=== PATIENT | male | born 1955 | race Caucasian/White ===

== ENCOUNTER → 2016-05-12 | Outpatient (CLI) | payer MEDICAID ==
[~2016-05-12] MED LIST: CALCIUM + D 6001 TA1 PO; DEPAKOTE SPRIN125 MG PO; MAG-OXIDE400 MG PO; PANTOPRAZOLE SO20 MG PO; PERCOCET5/325 PO; ZEGERID 20 MG C1 CAP PO; ZINC GLUCONATE100 MG PO
--- NOTE | ~2016-05-12 | EKG ---
PATIENT: NICHOLE AGUILA UNIT #: [id number] Ventricular Rate: 67 BPM Atrial Rate: 67 BPM P-R Interval: 182 ms QRS Duration: 98 ms Q-T Interval: 374 ms QTC Calculation(Bezet): 395 ms P Fromberg: 31 degrees Calculated R Fromberg: 15 degrees Calculated T Fromberg: 16 degrees Diagnosis Line: Normal sinus rhythm Diagnosis Line: Normal ECG Diagnosis Line: When compared with ECG of 26-AUG-2015 08:42, Diagnosis Line: No significant change was found Diagnosis Line: Confirmed by RUEL GRAVES MD ([id number]) on 05/14/2016 Diagnosis Line: 9:30:19 AM INTERPRETING MD: ELY PATEL
[2016-05-12 15:33] LABS: ALBUMIN SERUM 4.2 g/dL (3.5-5.0); ALKALINE PHOSPHATASE 50 U/L (32-92); ALT (SGPT) 118 U/L (10-40); AST (SGOT) 124 U/L (10-42); BILIRUBIN,TOTAL 1.4 mg/dL (0.2-2.0); BLOOD UREA NITROGEN 16 mg/dL (9-23); BUN/CREATININE RATIO 22.85; CALCIUM SERUM 9.3 mg/dL (8.4-10.2); CARBON DIOXIDE 27 mmol/L (22-31); CHLORIDE 100 mmol/L (100-111); CREATININE SERUM 0.7 mg/dL (0.6-1.4); GLOM FILT RATE Estimated ABOVE60 mL/min (>60); GLUCOSE FASTING 99 mg/dL (70-110); POTASSIUM 4.1 mmol/L (3.5-5.1); PROTEIN TOTAL SERUM 8.5 g/dL (6.0-8.3); SODIUM 136 mmol/L (135-145)
== END | disposition home or self-care (01) ==
LOC: CAMB 12:14
PROVIDERS: Orthopaedic Surgery
DX: Z01.818 Encounter for other preprocedural examination (principal); T84.84XA Pain due to internal orthopedic prosthetic devices, implants and grafts, initial encounter; Z96.661 Presence of right artificial ankle joint
CPT/HCPCS: 36415; 80053; 93005

== ENCOUNTER → 2016-05-18 | Day surgery (SDC) | payer MEDICAID ==
--- NOTE | ~2016-05-18 | OR ---
Unit #: [id number] #: [id number] Patient: NICHOLE AGUILA III [id number] [address] [place], [place] [address] [id number] O MR#: [id number] NAME: NICHOLE AGUILA III ROOM: Date of Procedure: 05/18/2016 Admission Date: 05/18/2016 Surgeon: Aleida Patel M.D. : 1955 Attending Physician: Aleida Patel M.D. Primary Care Physician: Mita Zurita M.D. OPERATIVE REPORT PREOPERATIVE DIAGNOSES 1. Left posterior ankle fracture with ankle equinus. 2. Left lateral ankle impingement. POSTOPERATIVE DIAGNOSES 1. Left posterior ankle fracture with ankle equinus. 2. Left lateral ankle impingement. PROCEDURES PERFORMED 1. Open left Achilles tendon lengthening with posterior ankle capsular release (33270). 2. Left posterolateral ankle joint debridement through ankle arthrotomy (93034). ASSISTANTS Tarun and Jenniffer. ANESTHESIA Popliteal saphenous block and general. INDICATIONS FOR SURGERY The patient is a 60-year-old male with 8 months status post left total ankle arthroplasty with ongoing pain and stiffness. He has failed to respond to conservative care. A CT scan is not document evidence of loosening. There is no evidence of infection. The patient likes ankle dorsiflexion past 0 degrees and has pain in the lateral ankle. Radiographs demonstrate some overgrowth of the posterior bone in the posterior ankle capsule as well as impingement of the talar component against the fibula. The patient is therefore to undergo open Achilles release, posterior ankle capsular release, and debridement of the chief deputy-lateral ankle joint to address the lateral talofibular impingement. DESCRIPTION OF PROCEDURE The patient underwent popliteal saphenous block. He was taken to the operating room and placed in the supine position. General endotracheal anesthesia was induced. The left ankle was identified as the correct operative extremity during the time-out procedure. Pneumatic tourniquet was applied to the left thigh. The patient was then rolled to a prone position. All bony prominences were well padded. The IV antibiotic protocol was followed. The left leg was then prepped and draped in the usual sterile fashion. Unit #: [id number] #: [id number] Patient: NICHOLE AGUILA III An 8 cm posterolateral longitudinal incision was made over the Achilles tendon. Subcutaneous tissue was divided. The Achilles paratenon was carefully dissected off the posterior aspect of the Achilles. The Achilles tendon was then lengthened in a coronal fashion using the Z technique. The posterior muscle fascia was then released over the flexor hallucis longus muscle and this muscle were retracted medially. The posterior ankle was then addressed and all scar was sharply excised until the posterior aspect of the artificial ankle joint could easily be seen. The posterolateral ankle joint was then visualized. The power osteotome was used to remove 3 mm of bone from the fibula. This bone was removed with the rongeur. The wound was then copiously irrigated. The posterolateral ankle joint easily accepted the tips of the rongeur indicating there was complete release. The wound was copiously irrigated. The Achilles tendon was then lengthened 1 cm and repaired with a running locking 2-0 FiberWire stitch. The Achilles paratenon was then closed with 3-0 Vicryl. Subcutaneous tissue was closed with 3-0 Vicryl. Skin was closed with 3-0 nylon horizontal mattress sutures. Xeroform gauze dressing, sponges, Webril, and a posterior fiberglass splint were applied. The patient was then transported to the recovery room in stable condition. ESTIMATED BLOOD LOSS Minimal. COMPLICATIONS None. SPECIMENS None. TOURNIQUET TIME 40 minutes. Dictated byTabitha Gracia/boby TD: 05/19/2016 01:06 JOB #: [id number] OPERATIVE REPORT Page 1 of 1 X Brown Patel MD X PROCEDURE OPERATIVE NOTE
--- NOTE | ~2016-05-18 | HP ---
Unit #: [id number] #: [id number] Patient: NICHOLE AGUILA III [id number] [address] [place], [place] [address] [id number] O MR#: [id number] NAME: NICHOLE AGUILA III ROOM: Age: 60 Sex: M Admission Date: 05/18/2016 : 1955 Attending Physician: Aleida Patel M.D. Primary Care Physician: Mita Zurita M.D. HISTORY AND PHYSICAL CHIEF COMPLAINT Painful left total ankle replacement. HISTORY OF PRESENT ILLNESS The patient is a 60-year-old male who underwent left total ankle arthroplasty and Brostrom reconstruction in August 2015. The patient has had persistent ongoing pain and has an antalgic gate. Radiographs show no evidence of loosening. He has not responded to physical therapy. He has not responded to injection of the joint. CT scan shows there is lateral impingement of the talar component against the fibula. The patient has limited ankle dorsiflexion to 0 degrees. The patient also has decreased sensation over the dorsomedial aspect of the foot in the distribution of the intermediate dorsal cutaneous nerve. The patient is, therefore, to undergo posterior capsular release with posterolateral and anteromedial release of impingement in order to hopefully increase his range of motion and decrease his pain. PAST MEDICAL HISTORY Remarkable for: 1. Alcohol abuse. 2. Hepatitis C. 3. History of tobacco abuse. HOME MEDICATIONS Gabapentin. ALLERGIES None. PAST SURGICAL HISTORY None other than ankle replacement nine months ago. SOCIAL HISTORY The patient is a former two pack per day smoker but he no longer smokes. He has a history of alcoholism but no longer drinks. FAMILY HISTORY Remarkable for alcohol abuse, hypertension, hypercholesterolemia, diabetes, COPD. PHYSICAL EXAMINATION GENERAL: Height 5 foot 6, weight 165 pounds. In general, this is a thin, white male in no acute distress. PHARYNX: Clear. Unit #: [id number] #: [id number] Patient: NICHOLE AGUILA III NECK: Supple without masses. HEART: Regular sinus rhythm without murmurs or gallops. LUNGS: Clear. ABDOMEN: Soft and nontender without masses or organomegaly. Evaluation of the left ankle shows a well-healed anterior longitudinal incision. There is mild swelling. There is no erythema or warmth. The patient has an antalgic gait. Alignment of the heel is neutral. The arch is normal. Motor exam is 5+/5. Sensation is decreased over the dorsomedial aspect of the foot. Pulses are intact. Ankle range of motion is dorsiflexion 0 degrees, plantar flexion 30 degrees. Subtalar motion is normal. DIAGNOSTIC STUDIES IMAGING: Standing x-rays of the left ankle show a Sonido Talaris implant in good position without evidence of loosening or subsidence. There is some evidence of impingement of the talar component against the fibula. Subtalar joint appears free of arthritic changes. Suture anchor in the distal fibula. ADMITTING DIAGNOSES Painful left total ankle arthroplasty with limited range of motion and probable impingement. PLAN The patient will undergo left posterior ankle debridement with posterior capsular release and Achilles tendon lengthening. This procedure was described along with risks of bleeding, infection, nerve damage, need for further surgery in the future, prolonged recovery time, deep venous thrombosis, pulmonary embolism, anesthetic complications. He understands the above risks and agrees to proceed with the treatment plan. Dictated by Tabitha Dewitt/jaskaran TD: 05/17/2016 08:48 JOB #: [id number] HISTORY AND PHYSICAL Page 1 of 1 X Brown Patel MD X HISTORY AND PHYSICAL
== END | disposition home or self-care (01) ==
LOC: CSUR 05:46
DX: T84.84XA Pain due to internal orthopedic prosthetic devices, implants and grafts, initial encounter (principal); S82.892A Other fracture of left lower leg, initial encounter for closed fracture; M25.872 Other specified joint disorders, left ankle and foot; K76.6 Portal hypertension; R01.1 Cardiac murmur, unspecified; K21.9 Gastro-esophageal reflux disease without esophagitis; Z86.73 Personal history of transient ischemic attack (TIA), and cerebral infarction without residual deficits; Z96.662 Presence of left artificial ankle joint; Z86.19 Personal history of other infectious and parasitic diseases; Z88.0 Allergy status to penicillin; Z88.8 Allergy status to other drugs, medicaments and biological substances; Z87.891 Personal history of nicotine dependence; Y83.1 Surgical operation with implant of artificial internal device as the cause of abnormal reaction of the patient, or of later complication, without mention of misadventure at the time of the procedure; X58.XXXA Exposure to other specified factors, initial encounter
CPT/HCPCS: J0330; J1170; J2250; J2405; J2710; J2795; J3010; J3370